=== PATIENT | female | born 1990 | race Caucasian/White ===

== ENCOUNTER 2017-10-16 13:45 | Inpatient (IN) | payer OTHER ==
[~2017-10-16] VITALS: Ht 154.9 cm; Wt 50.8 kg
[2017-10-26] MEDS ORDERED: TUMS200 MG PO (01:21)
[2017-10-26] MEDS ORDERED: MIRALAX17 GM PO (01:22)
[2017-10-26] MEDS ORDERED: IRON325 MG PO (01:23)
[2017-10-26] MEDS ORDERED: PRENATAL FORMU1 EAC1 PO (01:24)
[2017-10-28] MEDS ORDERED: COLACE100 MG PO (07:19)
== END 2017-10-28 10:13 | DRG 775 ==
LOC: LDR 10-26 03:01 → OB/GYN 10-26 07:43
PROVIDERS: Specialist
PROC: 0DQR0ZZ Repair Anal Sphincter, Open Approach (ICD-10-PCS; 2017-10-26)
PROC: 10907ZC Drainage of Amniotic Fluid, Therapeutic from Products of Conception, Via Natural or Artificial Opening (ICD-10-PCS; 2017-10-26)
PROC: 4A1HXCZ Monitoring of Products of Conception, Cardiac Rate, External Approach (ICD-10-PCS; 2017-10-26)
PROC: 10E0XZZ Delivery of Products of Conception, External Approach (ICD-10-PCS; principal; 2017-10-26 07:00)
DX: O70.23 Third degree perineal laceration during delivery, IIIc (principal); Z3A.37 37 weeks gestation of pregnancy; Z37.0 Single live birth

== ENCOUNTER 2017-10-26 00:27 | Outpatient (CLI) | payer OTHER ==
[2017-10-26] MEDS ORDERED: TUMS200 MG PO (01:21)
[2017-10-26] MEDS ORDERED: MIRALAX17 GM PO (01:22)
[2017-10-26] MEDS ORDERED: IRON325 MG PO (01:23)
[2017-10-26] MEDS ORDERED: PRENATAL FORMU1 EAC1 PO (01:24)
== END 2017-10-26 08:10 | disposition still patient (30) ==
LOC: OBS/DEL 00:27
DX: O47.1 False labor at or after 37 completed weeks of gestation (principal); Z34.03 Encounter for supervision of normal first pregnancy, third trimester

== ENCOUNTER 2023-09-19 19:19 | Emergency (ER) | payer OTHER ==
[~2023-09-19] VITALS: Ht 149.9 cm; Wt 57.6 kg
[~2023-09-19 19:19] MED LIST: COLACE100 MG PO; IRON325 MG PO; MIRALAX17 GM PO; PRENATAL FORMU1 EAC1 PO; TUMS200 MG PO
[2023-09-19] MEDS ORDERED: BUTALB/ACETAMINOPHEN/CAFFEINE 1 TAB TABLET PO ONE (20:15)
[2023-09-19] MEDS ORDERED: ONDANSETRON HCL 2 MG/ML VIAL IV ONE (20:15)
[2023-09-19] MEDS ORDERED: 0.9 % SODIUM CHLORIDE 1,000 ML IV SCH (20:15)
[2023-09-19 21:12] LABS: ALBUMIN 3.4 gm/dL (3.4-5.0); BILIRUBIN TOTAL 0.28 mg/dL (0.3-1.2); CREATININE SERUM 0.55 mg/dL (0.55-1.02); GFR 126.52; GLOBULINA 4.2 G/DL (2.4-3.5); POTASSIUM 3.69 mEq/L (3.5-5.1); TOTAL PROTEIN 7.6 gm/dL (6.4-8.2)
[2023-09-19 21:36] LABS: HEMATOCRIT 36.5 % (36.0-45.00); HEMOGLOBIN 12.8 g/dL (12.0-15.00); MEAN CELL VOLUME 86.6 fL (80.00-100.00); MEAN CORPUSCULAR HEMOGLOBIN 30.5 pg (27.00-32.0); MEAN CORPUSCULAR HGB CONC 35.2 g/dl (32.0-36.0); PLATELET COUNT 185 K/uL (150-450); RED BLOOD COUNT 4.22 M/uL (4.00-6.00); RED CELL DISTRIBUTION WIDTH 13.9 % (11.5-14.5)
[2023-09-19] MEDS ORDERED: MEPERIDINE HCL/PF 25 MG/ML VIAL IM ONE (22:00)
[2023-09-19] MEDS ORDERED: PROMETHAZINE HCL 25 MG/ML AMPUL IM ONE (22:00)
[2023-09-19] MEDS ORDERED: KETOROLAC TROMETHAMINE 60 MG VIAL IM ONE (23:15)
== END 2023-09-20 00:36 | disposition home or self-care (01) ==
LOC: ER 19:19
PROVIDERS: General Practice
DX: O26.891 Other specified pregnancy related conditions, first trimester (principal); Z3A.08 8 weeks gestation of pregnancy; G43.909 Migraine, unspecified, not intractable, without status migrainosus; Z20.822 Contact with and (suspected) exposure to COVID-19

== ENCOUNTER 2023-10-16 11:49 | Outpatient (CLI) | payer OTHER | END 2023-10-16 11:50 | disposition home or self-care (01) | LOC: PRENATAL 11:49 | PROVIDERS: ATTEND Obstetrics & Gynecology Maternal & Fetal Medicine | DX: O36.80X0 Pregnancy with inconclusive fetal viability, not applicable or unspecified (principal); Z36.82 Encounter for antenatal screening for nuchal translucency; O09.529 Supervision of elderly multigravida, unspecified trimester; Z3A.11 11 weeks gestation of pregnancy ==

== ENCOUNTER 2024-02-17 10:18 | Outpatient (CLI) | payer OTHER | END 2024-02-17 10:19 | disposition home or self-care (01) | LOC: PRENATAL 10:18 | PROVIDERS: ATTEND Obstetrics & Gynecology Maternal & Fetal Medicine | DX: O26.843 Uterine size-date discrepancy, third trimester (principal); O09.523 Supervision of elderly multigravida, third trimester; Z3A.28 28 weeks gestation of pregnancy ==

== ENCOUNTER → 2024-03-24 08:58 | Outpatient (CLI) | payer OTHER | END | disposition home or self-care (01) | LOC: PRENATAL 08:58 | PROVIDERS: ATTEND Obstetrics & Gynecology Maternal & Fetal Medicine | DX: O26.849 Uterine size-date discrepancy, unspecified trimester (principal); O36.8199 Decreased fetal movements, unspecified trimester, other fetus; O09.529 Supervision of elderly multigravida, unspecified trimester; Z3A.34 34 weeks gestation of pregnancy ==

== ENCOUNTER 2024-04-23 14:00 | Inpatient (IN) | payer OTHER ==
[~2024-04-23] VITALS: Ht 149.9 cm; Wt 72.6 kg
[2024-04-25] MEDS ORDERED: PRENATAL TABLE1 EAC1 PO (05:22)
[2024-04-26] VITALS (13 sets, daily range): BP systolic 76–129; BP diastolic 42–73
[2024-04-26] MEDS ORDERED: RINGERS SOLUTION,LACTATED 1,000 ML IV SCH (06:15)
[2024-04-26] MEDS ORDERED: OXYTOCIN 1,000 ML IV SCH (08:00)
[2024-04-26] MEDS ORDERED: IBUprofen 400 MG TABLET PO PRN (08:00)
[2024-04-26] MEDS ORDERED: ERYTHROMYCIN BASE OPHT 1GM EACH TUBE OP ONE (08:00)
[2024-04-26] MEDS ORDERED: LIDOCAINE HCL 1% 10ML VIAL IJ ONE (08:00)
[2024-04-26] MEDS ORDERED: CHLORHEXIDINE GLUCONATE 120 ML BOTTLE TOP ONE (08:00)
[2024-04-26] MEDS ORDERED: OXYTOCIN 1,000 ML IV ONE (08:00)
[2024-04-26] MEDS ORDERED: PNV,CALCIUM 72/IRON/FOLIC ACID 1 TAB TABLET PO SCH (09:00)
[2024-04-26 13:50] LABS: HEMATOCRIT 33.9 % (36.0-45.00); HEMOGLOBIN 11.4 g/dL (12.0-15.00); MEAN CELL VOLUME 85.6 fL (80.00-100.00); MEAN CORPUSCULAR HEMOGLOBIN 28.7 pg (27.00-32.0); MEAN CORPUSCULAR HGB CONC 33.6 g/dl (32.0-36.0); PLATELET COUNT 210 K/uL (150-450); RED BLOOD COUNT 3.96 M/uL (4.00-6.00); RED CELL DISTRIBUTION WIDTH 14.4 % (11.5-14.5)
[2024-04-27 05:25] VITALS: BP 122/75
[2024-04-27 08:11] VITALS: BP 108/73
[2024-04-27 16:29] VITALS: BP 101/68
[2024-04-28] VITALS: BP 104/69
[2024-04-28] MEDS ORDERED: IBUPROFEN800 MG PO (06:51)
[2024-04-28 08:41] VITALS: BP 100/57
== END 2024-04-28 14:18 | disposition home or self-care (01) | DRG 807 ==
LOC: LDR 14:00 → OB/GYN 04-26 07:54
PROVIDERS: Obstetrics & Gynecology; ADMIT Specialist; ATTEND Specialist
PROC: 10E0XZZ Delivery of Products of Conception, External Approach (ICD-10-PCS; principal; 2024-04-26)
PROC: 0KQM0ZZ Repair Perineum Muscle, Open Approach (ICD-10-PCS; 2024-04-26)
PROC: 4A1HXCZ Monitoring of Products of Conception, Cardiac Rate, External Approach (ICD-10-PCS; 2024-04-26)
DX: O70.1 Second degree perineal laceration during delivery (principal); Z37.0 Single live birth; Z3A.38 38 weeks gestation of pregnancy; Z20.822 Contact with and (suspected) exposure to COVID-19

== ENCOUNTER 2024-04-25 05:11 | Outpatient (CLI) | payer OTHER ==
[2024-04-25 04:31] VITALS: BP 129/63
[2024-04-25] MEDS ORDERED: PRENATAL TABLE1 EAC1 PO (05:22)
[2024-04-25] MEDS ORDERED: RINGERS SOLUTION,LACTATED 1,000 ML IV SCH (05:45)
[2024-04-25 07:18] VITALS: BP 106/54
[2024-04-25 07:37] LABS: URINE APPEARANCE Clear; URINE BILIRRUBIN Negative (NEGATIVE); URINE BLOOD NHT; URINE COLOR Yellow; URINE GLUCOSE Negative (NEGATIVE); URINE KETONE Negative (NEGATIVE); URINE LEUKOCYTE Negative; URINE NITRATE Negative; URINE PROTEIN Negative (NEGATIVE); URINE UROBILINOGEN 0.2 E.U./dl
[2024-04-25 07:40] LABS: URINE BACTERIA 45.3 uL (0.0-1933); URINE RBC 5.6 uL (0.0-20.8)
[2024-04-25 08:11] LABS: HEMATOCRIT 32.9 % (36.0-45.00); HEMOGLOBIN 11.4 g/dL (12.0-15.00); MEAN CELL VOLUME 84.2 fL (80.00-100.00); MEAN CORPUSCULAR HEMOGLOBIN 29.2 pg (27.00-32.0); MEAN CORPUSCULAR HGB CONC 34.6 g/dl (32.0-36.0); PLATELET COUNT 198 K/uL (150-450); RED BLOOD COUNT 3.91 M/uL (4.00-6.00); RED CELL DISTRIBUTION WIDTH 14.2 % (11.5-14.5)
[2024-04-25 08:22] LABS: INR < 0.93; PARTIAL THROMBOPLASTIN TIME 24.6 SECONDS (22.0-34.0); PROTHROMBIN TIME 10.1 SECONDS (9.0-11.5)
[2024-04-25] MEDS ORDERED: MORPHINE SULFATE 4 MG/ML VIAL IV PRN (11:00)
[2024-04-25 11:45] VITALS: BP 99/49
[2024-04-25 15:57] VITALS: BP 106/56
[2024-04-25 19:16] VITALS: BP 95/83
[2024-04-25 23:12] VITALS: BP 106/47
[2024-04-26 00:43] VITALS: BP 106/47
[2024-04-26 04:12] VITALS: BP 111/60
[2024-04-26] MEDS ORDERED: MORPHINE SULFATE 4 MG/ML VIAL IV PRN (04:30)
== END 2024-04-26 05:50 | disposition still patient (30) ==
LOC: OBS/DEL 05:11
PROVIDERS: Obstetrics & Gynecology; ATTEND Specialist
DX: O26.893 Other specified pregnancy related conditions, third trimester (principal); Z3A.38 38 weeks gestation of pregnancy